=== PATIENT | male | born 1950 | race Caucasian/White ===

== ENCOUNTER 2023-10-17 11:49 | Emergency (ER) | payer MEDICARE ==
[~2023-10-17] VITALS: Ht 177.8 cm; Wt 96.2 kg
[2023-10-17 11:49] VITALS: BP 157/73; PULSE 61; RESP 18; TEMP 97.9; O2SAT 97
--- NOTE | 2023-10-17 11:49 | NUR ---
ARRIVAL PT ARRIVED AMBULATORY TO ED 4 WITH C/O FALLING ON A VOLLEYBALL COURT AND HITTING HIS HEAD. PT HAS AN ABRASION ON THE BRIDGE OF HIS NOSE AND HAS A HEMATOMA ON TH ELEFT SIDE OF HIS FOREHEAD. PT ALSO HAS C/O NECK PAIN. C-COLLAR APPLIED AND DR HELM.
[2023-10-17] MEDS ORDERED: BOOSTRIX IM ONE (12:14)
[2023-10-17] MEDS: BOOSTRIX IM ONE (12:16)
[2023-10-17 12:19] VITALS: BP 151/69; PULSE 59; RESP 18; TEMP 97.9; O2SAT 97
[2023-10-17 12:31] LABS: +ADD MANUAL DIFF(NO CHRG) NO; BASOPHIL % 0.3 % (0.2-1.2); EOSINOPHIL # 0.1 10^3/uL (0.0-0.2); EOSINOPHIL % 1.5 % (0.0-5.0); HEMATOCRIT(ML) 47.2 % (37.0-53.0); HEMOGLOBIN 15.1 g/dL (13.9-16.3); LYMPHOCYTES # 1.17 10^3/uL1 (1.0-4.8); LYMPHOCYTES % 14.6 % (24.0-44.0); MEAN CORP VOLUME 93.7 fL (78-100); MONOCYTES # 0.4 10^3/uL (0.3-0.8); MONOCYTES % 5.1 % (5.0-12.0); NEUTROPHIL # 6.3 10^3/uL (1.8-7.7); NEUTROPHILS % 78.2 % (41.0-85.0); PLATELET COUNT 175 10^3/uL (150-400); RED BLOOD CELL 5.04 10^6/uL (4.50-5.90); RED CELL DISTRIBUTION WIDTH 13.7 % (11.5-14.5)
[2023-10-17 12:49] VITALS: BP 151/69; PULSE 56; RESP 18; TEMP 97.9; O2SAT 97
[2023-10-17 12:59] LABS: ALBUMIN(ML) 3.9 g/dL (3.4-5.0); ALBUMIN/GLOBULIN RATIO 1.083; ANION GAP 10.7; BUN/CREATININE RATIO 11.53 (10.0-20.0); CALCIUM 8.9 mg/dL (8.4-10.5); CARBON DIOXIDE 30.1 mmol/L (20.0-32); CREATININE SERUM 1.56 mg/dL (0.59-1.40); EST GFR, NON-AA 43.6 (>/=60); POTASSIUM 3.8 mmol/L (3.6-5.2)
[2023-10-17 13:19] VITALS: BP 119/62; PULSE 64; RESP 18; TEMP 97.9; O2SAT 97
--- NOTE | 2023-10-17 13:28 | NUR ---
AMA DR CANO TO PTS ROOM TO DISCUSS BEING TRANSFERRED TO [place]. PT AND HIS DECLINED AND STATED SHE DROVE HIM HERE SO SHE CAN DRIVE HIM OVER THERE. DR CANO EXPLAINED RISKS AND PT VERBALIZED UNDERSTANDING. PT SIGNED AMA PAPER AND WHEELED OFF OF UNIT WITH .
--- NOTE | 2023-10-17 13:38 | NUR ---
I&O PT HAD NO INPUT AND OUTPUT AT TIME OF LEAVING ED
== END 2023-10-17 13:28 | disposition left against medical advice (07) ==
LOC: ER 11:49
DX: S12.110A Anterior displaced Type II dens fracture, initial encounter for closed fracture (principal); E07.9 Disorder of thyroid, unspecified; I10 Essential (primary) hypertension; W01.0XXA Fall on same level from slipping, tripping and stumbling without subsequent striking against object, initial encounter; Y93.89 Activity, other specified; Y93.01 Activity, walking, marching and hiking; Y99.8 Other external cause status
CPT/HCPCS: 36415; 70450; 70486; 72125; 80053; 84484; 85025; 90471; 90715; 93005; 99285